=== PATIENT | male | born 1955 | race African-American/Black ===

== ENCOUNTER 2016-11-21 02:01 | Emergency (ER) | payer MEDICAID ==
[~2016-11-21] VITALS: Ht 190.5 cm; Wt 108.0 kg
[~2016-11-21 02:01] MED LIST: ACET-2178 PO; AMLO10TA4 PO; ASPI-1035 PO; ATOR80TA PO; CEPH-569 PO; CIPR-168 PO; CLOP75TA33 PO; DOCU-150 PO; FLUC200T37 PO; INSU3INS6 SUBCUT; ISOS60TA4 PO; NITR0.4T3 SL; PRED5TAB48 PO; PROG1 PO; TAMS0.4C31 PO; WARF5TAB76 PO
[2016-11-21 05:38] LABS: HEMATOCRIT. 38.1 % (42.0-52.0); HEMOGLOBIN. 12.2 g/dL (14.0-18.0); MEAN CORPUSCULAR HEMOGLOBIN 27.8 pg (28.0-32.0); MEAN CORPUSCULAR VOLUME 86.7 fL (80.0-94.0); PLATELET 140 x1000/uL (130-400); RED BLOOD CELL COUNT 4.39 mill/uL (4.7-6.1)
[2016-11-21 05:40] LABS: DIFFERENTIAL COMMENT 1
[2016-11-21 05:57] LABS: ALANINE AMINOTRANSFERASE 15 IU/L (13-61); ALBUMIN 2.8 g/dL (3.4-5.0); ANION GAP 13; CALCIUM 9.1 mg/dL (8.5-10.1); CARBON DIOXIDE 27 mEq/L (21-32); CHLORIDE 104 mEq/L (98-107); INDEX HEMOLYSI 1 (1-3); INDEX ICTERIC 1 (1-4); INDEX LIPEMIC 1 (1-3); LIPASE 174 IU/L (73-393); UREA NITROGEN BLOOD 25 mg/dL (7-21); eGFR 58 mL/min (>60)
[2016-11-21 06:07] LABS: CLARITY URINE CLOUDY (CLEAR); COLOR URINE YELLOW (YELLOW); GLUCOSE URINE 2+ (NEGATIVE); KETONES URINE NEGATIVE (NEGATIVE); LEUKOCYTE ESTERASE URINE 3+ (NEGATIVE); NITRITE URINE POSITIVE (NEGATIVE); OCCULT BLOOD URINE 2+ (NEGATIVE); PROTEIN URINE 2+ (NEGATIVE); SPECIFIC GRAVITY URINE 1.016 (1.005-1.030); UROBILINOGEN URINE 0.2 E.U./dL (0.2-1.0)
[2016-11-21 06:56] LABS: SQUAMOUS EPITHELIAL CELL URINE NONE SEEN /lpf (RARE/1+)
[2016-11-21 06:57] LABS: WBC URINE TNTC /hpf (0-2)
[2016-11-21 06:58] LABS: BACTERIA URINE 3+; RBC URINE 15-25 /hpf (0-2)
[2016-11-21 07:06] LABS: ANISOCYTOSIS 1+; PLATELET ESTIMATE NORMAL
[2016-11-21] MEDS ORDERED: LEVOFLOXACIN 250MG TABLET PO SCH (07:45)
[2016-11-21] MEDS ORDERED: ACETAMINOPHEN 500MG TABLET PO ONE (07:45)
[2016-11-21] MEDS ORDERED: SODIUM CHLORIDE 0.9% 1,000 ML IV ONE (07:45)
[2016-11-21 10:16] VITALS: BP 120/83
== END 2016-11-21 10:57 | disposition home or self-care (01) ==
LOC: ER 02:12
DX: N39.0 Urinary tract infection, site not specified (principal); I10 Essential (primary) hypertension; E11.9 Type 2 diabetes mellitus without complications; I25.2 Old myocardial infarction; Z79.4 Long term (current) use of insulin
CPT/HCPCS: 36415; 80053; 81001; 83690; 85025; 96360; 96361; 99285; J7030; Z7610

== ENCOUNTER → 2017-03-24 | Outpatient (CLI) | payer MEDICAID ==
[~2017-03-24] MED LIST changes: -ASPI-1035 PO; +ASPI-1159 PO; +FLUC200T PO; -FLUC200T37 PO
== END | disposition home or self-care (01) ==
LOC: RAD 09:43
DX: Z01.818 Encounter for other preprocedural examination (principal); I25.10 Atherosclerotic heart disease of native coronary artery without angina pectoris
CPT/HCPCS: 71010

== ENCOUNTER 2017-05-17 00:20 | Inpatient (IN) | payer MEDICAID, OTHER ==
[~2017-05-17] VITALS: Ht 195.6 cm; Wt 96.2 kg
[~2017-05-17 00:20] MED LIST changes: -NITR0.4T3 SL; +NITR0.4T49 SL
[2017-05-17] MEDS ORDERED: ONDANSETRON HCL 4MG/2ML VIAL IV STA (00:52)
[2017-05-17] MEDS ORDERED: MORPHINE SULFATE 4 MG/ML CPJ (NOT FOR IM USE) IV STA (00:52)
[2017-05-17] MEDS ORDERED: ASPIRIN 81MG TABLET PO ONE (01:00)
[2017-05-17] MEDS ORDERED: NITROGLYCERIN OINT 1GM/INCH UDPKT TD ONE (01:00)
[2017-05-17 01:32] LABS: HEMATOCRIT. 26.7 % (42.0-52.0); HEMOGLOBIN. 8.4 g/dL (14.0-18.0); MEAN CORPUSCULAR HEMOGLOBIN 24.8 pg (28.0-32.0); MEAN CORPUSCULAR VOLUME 78.3 fL (80.0-94.0); MEAN PLATELET VOLUME 7.4 fl (7.4-10.4); PLATELET 165 x1000/uL (130-400); RED BLOOD CELL COUNT 3.41 mill/uL (4.7-6.1); RED CELL DISTRIBUTION WIDTH 15.6 % (11.6-14.6)
[2017-05-17 01:46] LABS: D-DIMER 0.4 mg/L FEU (<0.50)
[2017-05-17] MEDS ORDERED: SODIUM CHLORIDE 0.9% 500 ML IV ONE (01:54)
[2017-05-17 02:14] LABS: CARBON DIOXIDE 23 mEq/L (21-32); CHLORIDE 106 mEq/L (98-107); ETHANOL BLOOD < 10 mg/dL; TROPONIN I 0.04 ng/mL (0.00-0.04)
[2017-05-17 03:45] VITALS: BP 130/84
[2017-05-17] MEDS ORDERED: GABA-531 PO (04:45)
[2017-05-17] MEDS ORDERED: ESOM20CA PO (04:45)
[2017-05-17] MEDS ORDERED: PRAV80TA21 PO (04:45)
[2017-05-17] MEDS ORDERED: MAGN400C PO (04:45)
[2017-05-17] MEDS ORDERED: WARF6TAB22 PO (04:45)
[2017-05-17] MEDS ORDERED: MAGN400T27 PO (04:45)
[2017-05-17] MEDS ORDERED: CELL2 PO (04:45)
[2017-05-17] MEDS ORDERED: SOTA80TA PO (04:45)
[2017-05-17] MEDS ORDERED: TACR5CAP2 PO (04:45)
[2017-05-17] MEDS ORDERED: DOCU-150 PO (04:45)
[2017-05-17] MEDS ORDERED: NITR0.4T49 SL (04:45)
[2017-05-17] MEDS ORDERED: INSLIS SUBCUT (04:45)
[2017-05-17] MEDS ORDERED: INSU100I28 SQ (04:45)
[2017-05-17] MEDS ORDERED: METO-396 PO (04:56)
[2017-05-17 05:25] LABS: CLARITY URINE CLOUDY (CLEAR); COLOR URINE YELLOW (YELLOW); GLUCOSE URINE TRACE (NEGATIVE); KETONES URINE NEGATIVE (NEGATIVE); LEUKOCYTE ESTERASE URINE 3+ (NEGATIVE); NITRITE URINE NEGATIVE (NEGATIVE); OCCULT BLOOD URINE 2+ (NEGATIVE); PROTEIN URINE 1+ (NEGATIVE); SPECIFIC GRAVITY URINE 1.016 (1.005-1.030); UROBILINOGEN URINE 0.2 E.U./dL (0.2-1.0)
[2017-05-17 05:47] LABS: *AMPHETAMINES SCREEN URINE NEGATIVE (NEGATIVE); *BARBITURATES SCREEN URINE NEGATIVE (NEGATIVE); *BENZODIAZEPINES SCREEN URINE NEGATIVE (NEGATIVE); *COCAINE SCREEN URINE NEGATIVE (NEGATIVE); CANNABINOID URINE SCREEN NEGATIVE (NEGATIVE); METHADONE URINE SCREEN NEGATIVE (NEGATIVE); OPIATES URINE SCREEN NEGATIVE (NEGATIVE); PHENCYCLIDINE URINE SCREEN NEGATIVE (NEGATIVE)
[2017-05-17 07:20] LABS: PLATELET ESTIMATE NORMAL
[2017-05-17 08:00] VITALS: BP 144/92
[2017-05-17] MEDS ORDERED: TACROLIMUS 1MG CAPSULE PO SCH (11:45)
[2017-05-17] MEDS ORDERED: DEXTROSE 50% WATER 50ML SYRINGE IV PRN (11:45)
[2017-05-17] MEDS ORDERED: DIPHENHYDRAMINE 50MG/ML VIAL IV PRN (11:45)
[2017-05-17] MEDS ORDERED: NITROGLYCERIN 0.4MG TABLET SL SL PRN (11:45)
[2017-05-17] MEDS ORDERED: MYCOPHENOLATE MOFETIL 250MG CAPSULE PO SCH (11:45)
[2017-05-17] MEDS ORDERED: HYDROCODONE/ACETAMINOPHEN 5/325MG TABLET PO PRN (11:45)
[2017-05-17] MEDS ORDERED: CLONIDINE 0.1MG TABLET PO PRN (11:45)
[2017-05-17] MEDS ORDERED: IPRATROPIUM/ALBUTEROL 0.5-3(2.5)MG/3ML NEB INH PRN (11:45)
[2017-05-17] MEDS ORDERED: ONDANSETRON HCL 4MG/2ML VIAL IV PRN (11:45)
[2017-05-17 12:00] VITALS: BP 122/85
[2017-05-17] MEDS: BLOOD SUGAR DIAGNOSTIC STRIP TEST SCH ×3 (12:14→21:27)
[2017-05-17] MEDS ORDERED: CEFTRIAXONE 1 G PREMIX 50 ML IV SCH (14:00)
[2017-05-17] MEDS: INSULIN LISPRO 100 UNITS/ML SUBCUT SCH ×5 (14:01→21:31)
[2017-05-17] MEDS: ASPIRIN 81MG EC TABLET PO SCH (14:04)
[2017-05-17] MEDS: TACROLIMUS 1MG CAPSULE PO SCH ×3 (14:05→21:20)
[2017-05-17] MEDS: CLOPIDOGREL 75MG TABLET PO SCH (14:05)
[2017-05-17] MEDS: PREDNISONE 5MG TABLET PO SCH (14:06)
[2017-05-17] MEDS: ISOSORBIDE MONONITRATE 60MG TABLET SR 24HR PO SCH (14:06)
[2017-05-17] MEDS: MAGNESIUM OXIDE 400MG TABLET PO SCH ×2 (14:06→17:38)
[2017-05-17 14:55] LABS: INR 3.7; PROTHROMBIN TIME 38.1 sec (9.4-11.6)
[2017-05-17 15:22] LABS: CREATINE KINASE MB FRACTION 2.3 ng/mL (0.5-3.6); TROPONIN I 0.04 ng/mL (0.00-0.04)
[2017-05-17] MEDS: MEROPENEM 500 MG in SODIUM CHLORIDE 0.9% 50 ML IV SCH (15:25)
[2017-05-17] MEDS: SODIUM CHLORIDE 0.45% 1,000 ML IV SCH (15:26)
[2017-05-17 16:00] VITALS: BP 128/79
[2017-05-17] MEDS: GABAPENTIN 300MG CAPSULE PO SCH (17:39)
[2017-05-17 20:00] VITALS: BP 129/79
[2017-05-17] MEDS: MYCOPHENOLATE MOFETIL 250MG CAPSULE PO SCH (21:20)
[2017-05-17] MEDS: METOPROLOL TARTRATE 25MG TABLET PO SCH (21:21)
[2017-05-18] VITALS (7 sets, daily range): BP systolic 116–164; BP diastolic 66–97
[2017-05-18] MEDS: ACETAMINOPHEN 325MG TABLET PO PRN ×2 (02:09→16:40)
[2017-05-18] MEDS: SODIUM CHLORIDE 0.45% 1,000 ML IV SCH (04:53)
[2017-05-18 07:11] LABS: INR 2.6; PROTHROMBIN TIME 26.5 sec (9.4-11.6)
[2017-05-18 07:27] LABS: BASOPHILS % 0.4 % (0.0-2.0); EOSINOPHILS % 1.5 % (0.0-5.0); HEMATOCRIT. 30.2 % (42.0-52.0); HEMOGLOBIN. 9.4 g/dL (14.0-18.0); LYMPHOCYTES % 7.4 % (20.0-50.0); MEAN CORPUSCULAR HEMOGLOBIN 24.5 pg (28.0-32.0); MEAN PLATELET VOLUME 7.2 fl (7.4-10.4); MONOCYTES % 11.1 % (2.0-8.0); NEUTROPHILS % 79.6 % (40.0-76.0); PLATELET 181 x1000/uL (130-400); RED BLOOD CELL COUNT 3.83 mill/uL (4.7-6.1); RED CELL DISTRIBUTION WIDTH 15.4 % (11.6-14.6)
[2017-05-18] MEDS: BLOOD SUGAR DIAGNOSTIC STRIP TEST SCH ×4 (07:40→21:28)
[2017-05-18] MEDS: INSULIN LISPRO 100 UNITS/ML SUBCUT SCH ×7 (08:10→21:40)
[2017-05-18 08:23] LABS: CHLORIDE 105 mEq/L (98-107)
[2017-05-18 08:36] LABS: CARBON DIOXIDE 22 mEq/L (21-32); CREATINE KINASE 38 IU/L (39-308); CREATINE KINASE MB FRACTION 1.7 ng/mL (0.5-3.6); HDL CHOLESTEROL 17 mg/dL (40-59); LDL CHOLESTEROL 96 mg/dL (5-100); TROPONIN I 0.03 ng/mL (0.00-0.04)
[2017-05-18] MEDS: MYCOPHENOLATE MOFETIL 250MG CAPSULE PO SCH ×2 (09:07→21:28)
[2017-05-18] MEDS: METOPROLOL TARTRATE 25MG TABLET PO SCH (09:07)
[2017-05-18] MEDS: TACROLIMUS 1MG CAPSULE PO SCH ×2 (09:07→21:28)
[2017-05-18] MEDS: CLOPIDOGREL 75MG TABLET PO SCH (09:07)
[2017-05-18] MEDS: ISOSORBIDE MONONITRATE 60MG TABLET SR 24HR PO SCH (09:08)
[2017-05-18] MEDS: MAGNESIUM OXIDE 400MG TABLET PO SCH ×2 (09:08→16:49)
[2017-05-18] MEDS: ASPIRIN 81MG EC TABLET PO SCH (09:08)
[2017-05-18] MEDS: DOCUSATE SODIUM 100MG CAPSULE PO SCH ×2 (09:10→16:49)
[2017-05-18] MEDS: PREDNISONE 5MG TABLET PO SCH (09:35)
[2017-05-18] MEDS ORDERED: REGADENOSON 0.4 MG/5 ML IV ONE (09:45)
[2017-05-18] MEDS: SOTALOL HCL 80MG TABLET PO SCH ×2 (12:18→21:00)
[2017-05-18] MEDS: RANOLAZINE 500 MG TAB.SR.12H PO SCH ×2 (12:18→21:00)
[2017-05-18] MEDS ORDERED: CEFTRIAXONE 1 G PREMIX 50 ML IV SCH (14:00)
[2017-05-18] MEDS: MEROPENEM 500 MG in SODIUM CHLORIDE 0.9% 50 ML IV SCH (14:05)
[2017-05-18] MEDS: GABAPENTIN 300MG CAPSULE PO SCH (16:48)
[2017-05-18] MEDS: TAMSULOSIN HCL 0.4MG SR CAPSULE PO SCH (16:48)
[2017-05-18] MEDS ORDERED: WARFARIN SODIUM 3MG TABLET PO NR (18:00)
[2017-05-18] MEDS: INSULIN DETEMIR UD 100 UNITS/ML SYR SUBCUT SCH (21:41)
[2017-05-19] VITALS: BP 103/61
[2017-05-19] MEDS: SODIUM CHLORIDE 0.45% 1,000 ML IV SCH ×2 (01:47→12:41)
[2017-05-19 04:00] VITALS: BP 110/74
[2017-05-19] MEDS: BLOOD SUGAR DIAGNOSTIC STRIP TEST SCH ×4 (06:15→21:19)
[2017-05-19 06:53] LABS: INR 1.6; PROTHROMBIN TIME 16.7 sec (9.4-11.6)
[2017-05-19 06:59] LABS: BASOPHILS % 0.8 % (0.0-2.0); EOSINOPHILS % 1.3 % (0.0-5.0); HEMATOCRIT. 29.7 % (42.0-52.0); HEMOGLOBIN. 9.3 g/dL (14.0-18.0); LYMPHOCYTES % 10.1 % (20.0-50.0); MEAN CORPUSCULAR HEMOGLOBIN 24.8 pg (28.0-32.0); MEAN CORPUSCULAR VOLUME 79.2 fL (80.0-94.0); MEAN PLATELET VOLUME 7.7 fl (7.4-10.4); NEUTROPHILS % 75.8 % (40.0-76.0); PLATELET 219 x1000/uL (130-400); RED BLOOD CELL COUNT 3.75 mill/uL (4.7-6.1); RED CELL DISTRIBUTION WIDTH 15.5 % (11.6-14.6)
[2017-05-19 08:00] VITALS: BP 178/92
[2017-05-19] MEDS: INSULIN LISPRO 100 UNITS/ML SUBCUT SCH ×8 (08:07→21:57)
[2017-05-19 08:12] LABS: CARBON DIOXIDE 24 mEq/L (21-32); CHLORIDE 107 mEq/L (98-107)
[2017-05-19] MEDS: PREDNISONE 5MG TABLET PO SCH (08:13)
[2017-05-19] MEDS: SOTALOL HCL 80MG TABLET PO SCH ×2 (08:14→21:13)
[2017-05-19] MEDS: DOCUSATE SODIUM 100MG CAPSULE PO SCH ×2 (08:14→16:43)
[2017-05-19] MEDS: MYCOPHENOLATE MOFETIL 250MG CAPSULE PO SCH ×2 (08:14→21:14)
[2017-05-19] MEDS: MAGNESIUM OXIDE 400MG TABLET PO SCH ×2 (08:14→16:43)
[2017-05-19] MEDS: TAMSULOSIN HCL 0.4MG SR CAPSULE PO SCH (08:15)
[2017-05-19] MEDS: ISOSORBIDE MONONITRATE 60MG TABLET SR 24HR PO SCH (08:15)
[2017-05-19] MEDS: TACROLIMUS 1MG CAPSULE PO SCH ×2 (08:15→21:15)
[2017-05-19] MEDS: ASPIRIN 81MG EC TABLET PO SCH (08:15)
[2017-05-19] MEDS: CLOPIDOGREL 75MG TABLET PO SCH (08:15)
[2017-05-19] MEDS: RANOLAZINE 500 MG TAB.SR.12H PO SCH ×2 (08:22→21:14)
[2017-05-19] MEDS: INSULIN DETEMIR UD 100 UNITS/ML SYR SUBCUT SCH ×2 (11:16→21:26)
[2017-05-19 12:00] VITALS: BP 159/99
[2017-05-19] MEDS ORDERED: LIDOCAINE HCL 1% 20ML VIAL (Pyxis) INJ ONE (14:12)
[2017-05-19] MEDS ORDERED: SODIUM BICARBONATE 4% (2.4MEQ) 5ML VIAL IV ONE (14:12)
[2017-05-19 16:00] VITALS: BP 142/77
[2017-05-19] MEDS: GABAPENTIN 300MG CAPSULE PO SCH (16:43)
[2017-05-19] MEDS: MEROPENEM 500 MG in SODIUM CHLORIDE 0.9% 50 ML IV SCH (17:24)
[2017-05-19] MEDS ORDERED: WARFARIN SODIUM 5MG TABLET PO NR (18:00)
[2017-05-19 20:00] VITALS: BP 141/73
[2017-05-20 02:51] VITALS: BP 178/88
[2017-05-20] MEDS: ACETAMINOPHEN 325MG TABLET PO PRN (02:57)
[2017-05-20 06:13] LABS: BASOPHILS % 0.6 % (0.0-2.0); EOSINOPHILS % 1.4 % (0.0-5.0); HEMATOCRIT. 29.3 % (42.0-52.0); HEMOGLOBIN. 9.3 g/dL (14.0-18.0); LYMPHOCYTES % 14.1 % (20.0-50.0); MEAN CORPUSCULAR VOLUME 78.6 fL (80.0-94.0); MEAN PLATELET VOLUME 7.5 fl (7.4-10.4); MONOCYTES % 12.7 % (2.0-8.0); NEUTROPHILS % 71.2 % (40.0-76.0); PLATELET 242 x1000/uL (130-400); RED BLOOD CELL COUNT 3.73 mill/uL (4.7-6.1); RED CELL DISTRIBUTION WIDTH 15.6 % (11.6-14.6)
[2017-05-20] MEDS: SODIUM CHLORIDE 0.45% 1,000 ML IV SCH (06:56)
[2017-05-20] MEDS: BLOOD SUGAR DIAGNOSTIC STRIP TEST SCH ×2 (06:56→12:52)
[2017-05-20 08:00] VITALS: BP 147/77
[2017-05-20] MEDS: SOTALOL HCL 80MG TABLET PO SCH (08:07)
[2017-05-20] MEDS: DOCUSATE SODIUM 100MG CAPSULE PO SCH (08:08)
[2017-05-20] MEDS: ISOSORBIDE MONONITRATE 60MG TABLET SR 24HR PO SCH (08:09)
[2017-05-20] MEDS: MAGNESIUM OXIDE 400MG TABLET PO SCH (08:09)
[2017-05-20] MEDS: CLOPIDOGREL 75MG TABLET PO SCH (08:09)
[2017-05-20] MEDS: TACROLIMUS 1MG CAPSULE PO SCH (08:10)
[2017-05-20] MEDS: INSULIN LISPRO 100 UNITS/ML SUBCUT SCH ×5 (08:10→12:53)
[2017-05-20] MEDS: MYCOPHENOLATE MOFETIL 250MG CAPSULE PO SCH (08:11)
[2017-05-20] MEDS: ASPIRIN 81MG EC TABLET PO SCH (08:11)
[2017-05-20] MEDS: PREDNISONE 5MG TABLET PO SCH (08:12)
[2017-05-20] MEDS: TAMSULOSIN HCL 0.4MG SR CAPSULE PO SCH (08:21)
[2017-05-20] MEDS: RANOLAZINE 500 MG TAB.SR.12H PO SCH (08:21)
[2017-05-20 08:36] LABS: INR 1.4
[2017-05-20] MEDS: INSULIN DETEMIR UD 100 UNITS/ML SYR SUBCUT SCH (10:34)
[2017-05-20 12:00] VITALS: BP 165/80
[2017-05-20] MEDS: MEROPENEM 500 MG in SODIUM CHLORIDE 0.9% 50 ML IV SCH (13:03)
[2017-05-20 13:39] VITALS: BP 134/68
[2017-05-20] MEDS ORDERED: WARFARIN SODIUM 5MG TABLET PO NR (18:00)
== END 2017-05-20 14:40 | disposition home or self-care (01) | DRG 194 ==
LOC: ER 00:20 → 7WST 02:41 → ENRESERV 03:13
PROVIDERS: ADMIT Internal Medicine; ATTEND Internal Medicine
PROC: 02HV33Z Insertion of Infusion Device into Superior Vena Cava, Percutaneous Approach (ICD-10-PCS; principal; 2017-05-19)
PROC: B548ZZA Ultrasonography of Superior Vena Cava, Guidance (ICD-10-PCS; 2017-05-19)
PROC: B5181ZA Fluoroscopy of Superior Vena Cava using Low Osmolar Contrast, Guidance (ICD-10-PCS; 2017-05-19)
DX: I13.0 Hypertensive heart and chronic kidney disease with heart failure and stage 1 through stage 4 chronic kidney disease, or unspecified chronic kidney disease (principal); E43 Unspecified severe protein-calorie malnutrition; D68.59 Other primary thrombophilia; I31.3 Pericardial effusion (noninflammatory); N17.9 Acute kidney failure, unspecified; D70.9 Neutropenia, unspecified; E86.9 Volume depletion, unspecified; E11.22 Type 2 diabetes mellitus with diabetic chronic kidney disease; N18.3 Chronic kidney disease, stage 3 (moderate); I24.9 Acute ischemic heart disease, unspecified; Q61.3 Polycystic kidney, unspecified; I50.33 Acute on chronic diastolic (congestive) heart failure; E11.40 Type 2 diabetes mellitus with diabetic neuropathy, unspecified; I48.0 Paroxysmal atrial fibrillation; N13.70 Vesicoureteral-reflux, unspecified; N39.0 Urinary tract infection, site not specified; I25.10 Atherosclerotic heart disease of native coronary artery without angina pectoris; D50.9 Iron deficiency anemia, unspecified; E11.319 Type 2 diabetes mellitus with unspecified diabetic retinopathy without macular edema; E78.00 Pure hypercholesterolemia, unspecified; E78.5 Hyperlipidemia, unspecified; I49.1 Atrial premature depolarization; I49.3 Ventricular premature depolarization; K21.9 Gastro-esophageal reflux disease without esophagitis; N12 Tubulo-interstitial nephritis, not specified as acute or chronic; N40.0 Benign prostatic hyperplasia without lower urinary tract symptoms; Q44.6 Cystic disease of liver; Z95.5 Presence of coronary angioplasty implant and graft; I25.2 Old myocardial infarction; Z79.01 Long term (current) use of anticoagulants; Z79.4 Long term (current) use of insulin; Z79.82 Long term (current) use of aspirin; Z79.899 Other long term (current) drug therapy; Z82.71 Family history of polycystic kidney; Z87.440 Personal history of urinary (tract) infections; Z89.411 Acquired absence of right great toe; Z95.1 Presence of aortocoronary bypass graft; Z94.0 Kidney transplant status
CPT/HCPCS: 36415; 36569; 71010; 76937; 77001; 80048; 80053; 80061; 80305; 81001; 82270; 82550; 82553; 82728; 82962; 83036; 83540; 83550; 83690; 83735; 83880; 84100; 84484; 85025; 85379; 85610; 87015; 87040; 87045; 87077; 87086; 87186; 87427; 87449; 87493; 93005; 93306; 96361; 96374; 96375; 99285; C1725; G0482; J0696; J1815; J2185; J3490; J7030; J7040; J7050; J7507; J7512; J7517

== ENCOUNTER → 2017-12-14 | Outpatient (CLI) | payer MEDICAID ==
[~2017-12-14] MED LIST changes: -ACET-2178 PO; -AMLO10TA4 PO; -ASPI-1159 PO; -ATOR80TA PO; +CELL2 PO; -CEPH-569 PO; -CIPR-168 PO; -CLOP75TA33 PO; +ESOM20CA PO; -FLUC200T PO; +GABA-531 PO; +INSLIS SUBCUT; +INSU100I28 SQ; -INSU3INS6 SUBCUT; +MAGN400T27 PO; +METO-396 PO; +PRAV80TA21 PO; -PROG1 PO; +SOTA80TA PO; +TACR5CAP2 PO; -WARF5TAB76 PO
== END | disposition home or self-care (01) ==
LOC: RAD 15:06
DX: Z01.810 Encounter for preprocedural cardiovascular examination (principal); I13.0 Hypertensive heart and chronic kidney disease with heart failure and stage 1 through stage 4 chronic kidney disease, or unspecified chronic kidney disease; E11.22 Type 2 diabetes mellitus with diabetic chronic kidney disease; N18.3 Chronic kidney disease, stage 3 (moderate); I50.9 Heart failure, unspecified; N11.9 Chronic tubulo-interstitial nephritis, unspecified; Z79.4 Long term (current) use of insulin; Z94.0 Kidney transplant status
CPT/HCPCS: 71045

== ENCOUNTER 2018-09-12 13:30 | Inpatient (IN) | payer MEDICAID, OTHER ==
[~2018-09-12] VITALS: Ht 195.6 cm; Wt 95.3 kg
[2018-09-12] MEDS ORDERED: ASPIRIN 81MG TABLET PO ONE (14:00)
[2018-09-12] MEDS ORDERED: DILTIAZEM HCL 5MG/ML 5ML VIAL IV ONE (14:00)
[2018-09-12] MEDS ORDERED: DILTIAZEM HCL 125 MG in DEXT 5% WATER 100 ML IV ONE (14:00)
[2018-09-12 15:23] LABS: CHLORIDE 108 mEq/L (98-107); HEMATOCRIT. 41.4 % (42.0-52.0); HEMOGLOBIN. 12.9 g/dL (14.0-18.0); MEAN CORPUSCULAR HEMOGLOBIN 27.5 pg (28.0-32.0); MEAN CORPUSCULAR VOLUME 88.4 fL (80.0-94.0); MEAN PLATELET VOLUME 8.1 fl (7.4-10.4); PLATELET 122 x1000/uL (130-400); RED BLOOD CELL COUNT 4.68 mill/uL (4.7-6.1); RED CELL DISTRIBUTION WIDTH 15.5 % (11.6-14.6)
[2018-09-12 15:56] LABS: PLATELET ESTIMATE NORMAL
[2018-09-12] MEDS ORDERED: ACETAMINOPHEN 325MG TABLET PO PRN (17:45)
[2018-09-12] MEDS ORDERED: HYDROCODONE/ACETAMINOPHEN 5/325MG TABLET PO PRN (17:45)
[2018-09-12] MEDS ORDERED: GUAIFENESIN 200MG/10ML SUGAR FREE UDC PO PRN (17:45)
[2018-09-12] MEDS ORDERED: ONDANSETRON HCL 4MG/2ML INJ IV PRN (17:45)
[2018-09-12] MEDS ORDERED: DOCUSATE SODIUM 100MG CAPSULE PO PRN (17:45)
[2018-09-12] MEDS ORDERED: CLONIDINE 0.1MG TABLET PO PRN (17:45)
[2018-09-12 21:00] VITALS: BP 132/81
[2018-09-12] MEDS ORDERED: HYDROMORPHONE HCL/PF 2MG/ML CPJ IV PRN (22:15)
[2018-09-12] MEDS: SOTALOL HCL 80MG TABLET PO SCH (23:27)
[2018-09-13] VITALS: BP 133/71
[2018-09-13] MEDS ORDERED: ATORVASTATIN CALCIUM 40MG TABLET PO SCH
[2018-09-13] MEDS ORDERED: NITR-87 PO (00:04)
[2018-09-13] MEDS ORDERED: CLOP75TA33 PO (00:04)
[2018-09-13] MEDS ORDERED: LOSA50TA20 PO (00:04)
[2018-09-13] MEDS ORDERED: APIX2.5T PO (00:04)
[2018-09-13] MEDS ORDERED: OXYB5TAB11 PO (00:04)
[2018-09-13] MEDS ORDERED: ATOR80TA PO (00:04)
[2018-09-13] MEDS ORDERED: TACR1CAP PO (00:04)
[2018-09-13] MEDS: TACROLIMUS 1MG CAPSULE PO SCH ×3 (00:23→17:46)
[2018-09-13] MEDS: APIXABAN 2.5 MG TABLET PO SCH ×3 (00:23→17:46)
[2018-09-13] MEDS: MYCOPHENOLATE MOFETIL 250MG CAPSULE PO SCH ×3 (00:24→21:05)
[2018-09-13] MEDS: ATORVASTATIN CALCIUM 40MG TABLET PO SCH ×2 (00:24→21:04)
[2018-09-13] MEDS: METOPROLOL TARTRATE 25MG TABLET PO SCH ×2 (00:25→09:01)
[2018-09-13] MEDS: NITROFURANTOIN 100MG M/M CAPSULE PO SCH ×2 (00:25→21:04)
[2018-09-13] MEDS: GABAPENTIN 300MG CAPSULE PO SCH ×2 (00:25→09:01)
[2018-09-13] MEDS: SODIUM POLYSTYRENE SULFONATE 15 G/60 ML BOT PO NR ×2 (00:27→00:32)
[2018-09-13 04:00] VITALS: BP 140/80
[2018-09-13 06:09] LABS: BASOPHILS % 0.5 % (0.0-2.0); EOSINOPHILS % 0.7 % (0.0-5.0); HEMOGLOBIN. 11.8 g/dL (14.0-18.0); LYMPHOCYTES % 10.1 % (20.0-50.0); MEAN CORPUSCULAR HEMOGLOBIN 27.7 pg (28.0-32.0); MEAN CORPUSCULAR VOLUME 86.8 fL (80.0-94.0); MEAN PLATELET VOLUME 8.3 fl (7.4-10.4); NEUTROPHILS % 77.7 % (40.0-76.0); PLATELET 115 x1000/uL (130-400); RED BLOOD CELL COUNT 4.27 mill/uL (4.7-6.1); RED CELL DISTRIBUTION WIDTH 15.5 % (11.6-14.6)
[2018-09-13 06:28] LABS: CHLORIDE 108 mEq/L (98-107)
[2018-09-13 06:43] LABS: LDL CHOLESTEROL 78 mg/dL (5-100)
[2018-09-13 06:44] LABS: CREATINE KINASE 73 IU/L (39-308); HDL CHOLESTEROL 36 mg/dL (40-59)
[2018-09-13] MEDS ORDERED: DEXTROSE 50% WATER 50ML SYRINGE IV PRN (07:15)
[2018-09-13] MEDS: BLOOD SUGAR DIAGNOSTIC STRIP TEST SCH ×4 (07:24→21:17)
[2018-09-13 08:00] VITALS: BP 151/91
[2018-09-13] MEDS: INSULIN LISPRO 100 UNITS/ML SUBCUT SCH ×7 (08:10→21:35)
[2018-09-13] MEDS: SOTALOL HCL 80MG TABLET PO SCH ×2 (09:00→21:07)
[2018-09-13] MEDS ORDERED: ENOXAPARIN 40MG/0.4ML SYR SUBCUT SCH (09:00)
[2018-09-13] MEDS: ASPIRIN 81MG EC TABLET PO SCH (09:00)
[2018-09-13] MEDS: PREDNISONE 5MG TABLET PO SCH (09:00)
[2018-09-13] MEDS ORDERED: GABAPENTIN 300MG CAPSULE PO SCH (09:00)
[2018-09-13] MEDS: CLOPIDOGREL 75MG TABLET PO SCH (09:01)
[2018-09-13] MEDS: TAMSULOSIN HCL 0.4MG SR CAPSULE PO SCH (09:01)
[2018-09-13] MEDS: INSULIN GLARGINE UD 100 UNITS/ML SYR SUBCUT SCH (10:30)
[2018-09-13 12:00] VITALS: BP 124/82
[2018-09-13 16:00] VITALS: BP 141/71
[2018-09-13 20:00] VITALS: BP 148/79
[2018-09-13 21:05] LABS: CLARITY URINE CLEAR (CLEAR); COLOR URINE YELLOW (YELLOW); KETONES URINE NEGATIVE (NEGATIVE); LEUKOCYTE ESTERASE URINE 1+ (NEGATIVE); NITRITE URINE NEGATIVE (NEGATIVE); OCCULT BLOOD URINE NEGATIVE (NEGATIVE); PH URINE 6.5 (4.5-8.0); PROTEIN URINE 1+ (NEGATIVE); SPECIFIC GRAVITY URINE 1.027 (1.005-1.030)
[2018-09-13] MEDS: METOPROLOL TARTRATE 50MG TABLET PO SCH (21:06)
[2018-09-13] MEDS: RANOLAZINE 500 MG TAB.SR.12H PO SCH (21:06)
[2018-09-14] VITALS: BP 165/70
[2018-09-14 04:30] VITALS: BP 168/92
[2018-09-14] MEDS: BLOOD SUGAR DIAGNOSTIC STRIP TEST SCH ×2 (05:52→13:21)
[2018-09-14 07:29] LABS: BASOPHILS % 0.4 % (0.0-2.0); HEMATOCRIT. 40.6 % (42.0-52.0); HEMOGLOBIN. 12.9 g/dL (14.0-18.0); LYMPHOCYTES % 11.5 % (20.0-50.0); MEAN CORPUSCULAR HEMOGLOBIN 27.4 pg (28.0-32.0); MEAN CORPUSCULAR VOLUME 86.4 fL (80.0-94.0); MEAN PLATELET VOLUME 8.3 fl (7.4-10.4); MONOCYTES % 12.9 % (2.0-8.0); NEUTROPHILS % 74.2 % (40.0-76.0); PLATELET 122 x1000/uL (130-400); RED CELL DISTRIBUTION WIDTH 15.4 % (11.6-14.6)
[2018-09-14 08:00] VITALS: BP 125/73
[2018-09-14] MEDS: INSULIN LISPRO 100 UNITS/ML SUBCUT SCH ×4 (08:10→13:34)
[2018-09-14] MEDS: TAMSULOSIN HCL 0.4MG SR CAPSULE PO SCH (08:54)
[2018-09-14] MEDS: APIXABAN 2.5 MG TABLET PO SCH (08:54)
[2018-09-14] MEDS: GABAPENTIN 300MG CAPSULE PO SCH (08:54)
[2018-09-14] MEDS: CLOPIDOGREL 75MG TABLET PO SCH (08:55)
[2018-09-14] MEDS: ASPIRIN 81MG EC TABLET PO SCH (08:55)
[2018-09-14] MEDS: METOPROLOL TARTRATE 50MG TABLET PO SCH (08:55)
[2018-09-14] MEDS: MYCOPHENOLATE MOFETIL 250MG CAPSULE PO SCH (08:55)
[2018-09-14] MEDS: RANOLAZINE 500 MG TAB.SR.12H PO SCH (08:55)
[2018-09-14] MEDS: TACROLIMUS 1MG CAPSULE PO SCH (08:55)
[2018-09-14] MEDS: NITROFURANTOIN 100MG M/M CAPSULE PO SCH (08:55)
[2018-09-14] MEDS: PREDNISONE 5MG TABLET PO SCH (08:58)
[2018-09-14] MEDS ORDERED: MAGNESIUM OXIDE 400MG TABLET PO SCH (10:00)
[2018-09-14] MEDS: SOTALOL HCL 80MG TABLET PO SCH (11:58)
[2018-09-14] MEDS: INSULIN GLARGINE UD 100 UNITS/ML SYR SUBCUT SCH (11:59)
[2018-09-14 12:00] VITALS: BP 141/73
[2018-09-14 14:24] VITALS: BP 141/73
[2018-09-15] MEDS ORDERED: INSULIN GLARGINE UD 100 UNITS/ML SYR SUBCUT SCH (10:00)
== END 2018-09-14 16:29 | disposition home or self-care (01) | DRG 194 ==
LOC: ER 13:30 → 7WST 16:36 → EDBEDREQ 16:37 → EDBEDREQTM 16:37 → SUPCPDRO 17:29 → ENRESERV 19:23 → 7WST 21:52
PROVIDERS: ADMIT Hospitalist; ATTEND Hospitalist
DX: I13.0 Hypertensive heart and chronic kidney disease with heart failure and stage 1 through stage 4 chronic kidney disease, or unspecified chronic kidney disease (principal); E11.22 Type 2 diabetes mellitus with diabetic chronic kidney disease; E11.42 Type 2 diabetes mellitus with diabetic polyneuropathy; E11.319 Type 2 diabetes mellitus with unspecified diabetic retinopathy without macular edema; E83.42 Hypomagnesemia; I31.3 Pericardial effusion (noninflammatory); I25.10 Atherosclerotic heart disease of native coronary artery without angina pectoris; Q44.6 Cystic disease of liver; E87.5 Hyperkalemia; N18.3 Chronic kidney disease, stage 3 (moderate); D64.9 Anemia, unspecified; E78.00 Pure hypercholesterolemia, unspecified; E78.5 Hyperlipidemia, unspecified; N28.1 Cyst of kidney, acquired; N39.0 Urinary tract infection, site not specified; I24.9 Acute ischemic heart disease, unspecified; I48.0 Paroxysmal atrial fibrillation; I50.32 Chronic diastolic (congestive) heart failure; K21.9 Gastro-esophageal reflux disease without esophagitis; N13.729 Vesicoureteral-reflux with reflux nephropathy without hydroureter, unspecified; N40.0 Benign prostatic hyperplasia without lower urinary tract symptoms; Z82.71 Family history of polycystic kidney; Z87.01 Personal history of pneumonia (recurrent); I25.2 Old myocardial infarction; Z87.440 Personal history of urinary (tract) infections; Z89.411 Acquired absence of right great toe; Z95.5 Presence of coronary angioplasty implant and graft; Z94.0 Kidney transplant status; Z84.1 Family history of disorders of kidney and ureter; Z79.01 Long term (current) use of anticoagulants; Z88.8 Allergy status to other drugs, medicaments and biological substances; Z79.4 Long term (current) use of insulin; Z79.899 Other long term (current) drug therapy
CPT/HCPCS: 36415; 71045; 80048; 80061; 80197; 82550; 82962; 83735; 83880; 84484; 85379; 93005; 93306; 93970; 99285; J1815; J3490; J7060; J7507; J7512; J7517

== ENCOUNTER 2019-01-16 16:00 | Inpatient (IN) | payer MEDICAID, OTHER ==
[~2019-01-16] VITALS: Ht 188 cm; Wt 81.6 kg
[~2019-01-16 16:00] MED LIST changes: +APIX2.5T PO; +ATOR80TA PO; +CLOP75TA33 PO; +LOSA50TA41 PO; +NITR-87 PO; +OXYB5TAB11 PO; -PRAV80TA21 PO
[2019-01-16 17:02] LABS: CHLORIDE 110 mEq/L (98-107)
[2019-01-16 17:19] LABS: BASOPHILS % 0.6 % (0.0-2.0); EOSINOPHILS % 0.6 % (0.0-5.0); HEMATOCRIT. 40.2 % (42.0-52.0); HEMOGLOBIN. 12.8 g/dL (14.0-18.0); LYMPHOCYTES % 12.9 % (20.0-50.0); MEAN CORPUSCULAR HEMOGLOBIN 27.7 pg (28.0-32.0); MEAN PLATELET VOLUME 8.1 fl (7.4-10.4); MONOCYTES % 9.3 % (2.0-8.0); NEUTROPHILS % 76.6 % (40.0-76.0); PLATELET 112 x1000/uL (130-400); RED BLOOD CELL COUNT 4.62 mill/uL (4.7-6.1); RED CELL DISTRIBUTION WIDTH 14.8 % (11.6-14.6)
[2019-01-16] MEDS ORDERED: FUROSEMIDE 40MG/4ML VIAL IVP ONE (18:00)
[2019-01-16 21:00] VITALS: BP 126/81
[2019-01-16] MEDS ORDERED: CLONIDINE 0.1MG TABLET PO PRN (22:15)
[2019-01-16] MEDS ORDERED: ONDANSETRON HCL 4MG/2ML INJ IV PRN (22:15)
[2019-01-16] MEDS ORDERED: DOCUSATE SODIUM 100MG CAPSULE PO PRN (22:15)
[2019-01-16] MEDS ORDERED: MAGNESIUM/ALUMINUM HYDROXIDE/SIMETHICONE 30ML UDC PO PRN (22:15)
[2019-01-16] MEDS ORDERED: ACETAMINOPHEN 325MG TABLET PO PRN (22:15)
[2019-01-16] MEDS ORDERED: HYDROCODONE/ACETAMINOPHEN 5/325MG TABLET PO PRN (22:15)
[2019-01-17] VITALS: BP 140/70
[2019-01-17 04:00] VITALS: BP 128/66
[2019-01-17 06:12] LABS: BASOPHILS % 0.8 % (0.0-2.0); EOSINOPHILS % 1.5 % (0.0-5.0); HEMATOCRIT. 40.4 % (42.0-52.0); HEMOGLOBIN. 13.2 g/dL (14.0-18.0); LYMPHOCYTES % 19.9 % (20.0-50.0); MEAN CORPUSCULAR HEMOGLOBIN 28.1 pg (28.0-32.0); MEAN CORPUSCULAR VOLUME 86.2 fL (80.0-94.0); MEAN PLATELET VOLUME 8.1 fl (7.4-10.4); MONOCYTES % 12.1 % (2.0-8.0); NEUTROPHILS % 65.7 % (40.0-76.0); PLATELET 112 x1000/uL (130-400); RED BLOOD CELL COUNT 4.69 mill/uL (4.7-6.1); RED CELL DISTRIBUTION WIDTH 14.8 % (11.6-14.6)
[2019-01-17 06:23] LABS: CHLORIDE 110 mEq/L (98-107)
[2019-01-17 06:41] LABS: CREATINE KINASE 164 IU/L (39-308)
[2019-01-17 06:43] LABS: CREATINE KINASE MB FRACTION 18.6 ng/mL (0.5-3.6)
[2019-01-17] MEDS ORDERED: DEXTROSE 50% WATER 50ML SYRINGE IV PRN (06:45)
[2019-01-17] MEDS: INSULIN LISPRO 100 UNITS/ML SUBCUT SCH ×6 (06:54→20:54)
[2019-01-17] MEDS: BLOOD SUGAR DIAGNOSTIC STRIP TEST SCH ×4 (06:55→20:55)
[2019-01-17 08:00] VITALS: BP 109/64
[2019-01-17] MEDS ORDERED: APIXABAN 5 MG TABLET PO SCH (09:00)
[2019-01-17] MEDS ORDERED: TACROLIMUS 1MG CAPSULE PO SCH (10:30)
[2019-01-17] MEDS: LOSARTAN POTASSIUM 50 MG TABLET PO SCH (11:04)
[2019-01-17] MEDS: TAMSULOSIN HCL 0.4MG SR CAPSULE PO SCH (11:04)
[2019-01-17] MEDS: CLOPIDOGREL 75MG TABLET PO SCH (11:05)
[2019-01-17] MEDS: ISOSORBIDE MONONITRATE 60MG TABLET SR 24HR PO SCH (11:05)
[2019-01-17] MEDS: TACROLIMUS 1MG CAPSULE PO SCH ×2 (11:08→20:36)
[2019-01-17] MEDS: MYCOPHENOLATE MOFETIL 250MG CAPSULE PO SCH ×2 (11:28→17:49)
[2019-01-17 12:00] VITALS: BP 133/77
[2019-01-17] MEDS: NITROGLYCERIN OINT 1GM/INCH UDPKT TD SCH ×3 (12:00→18:00)
[2019-01-17] MEDS: RANOLAZINE 500 MG TAB.SR.12H PO SCH ×2 (13:00→20:39)
[2019-01-17] MEDS: PREDNISONE 5MG TABLET PO SCH (13:17)
[2019-01-17 14:05] LABS: PHOSPHORUS 2.7 mg/dL (2.5-4.9)
[2019-01-17 16:00] VITALS: BP 108/56
[2019-01-17 17:06] LABS: CREATINE KINASE MB FRACTION 15.4 ng/mL (0.5-3.6)
[2019-01-17] MEDS: APIXABAN 5 MG TABLET PO SCH (17:49)
[2019-01-17] MEDS: GABAPENTIN 300MG CAPSULE PO SCH (17:50)
[2019-01-17] MEDS: MAGNESIUM GLUCONATE 500MG TABLET PO SCH (17:51)
[2019-01-17] MEDS: MORPHINE SULFATE 2 MG/ML CPJ (NOT FOR IM USE) IV PRN (18:41)
[2019-01-17 19:26] LABS: *AMPHETAMINES SCREEN URINE NEGATIVE (NEGATIVE); *BARBITURATES SCREEN URINE NEGATIVE (NEGATIVE); *BENZODIAZEPINES SCREEN URINE NEGATIVE (NEGATIVE); *COCAINE SCREEN URINE NEGATIVE (NEGATIVE)
[2019-01-17 19:27] LABS: CANNABINOID URINE SCREEN NEGATIVE (NEGATIVE); METHADONE URINE SCREEN NEGATIVE (NEGATIVE); OPIATES URINE SCREEN PRESUMTIVE POSITIVE (NEGATIVE); PHENCYCLIDINE URINE SCREEN NEGATIVE (NEGATIVE)
[2019-01-17 20:00] VITALS: BP 151/78
[2019-01-17] MEDS: OXYBUTYNIN CHLORIDE 5MG TABLET PO SCH (20:36)
[2019-01-17] MEDS: SOTALOL HCL 80MG TABLET PO SCH (20:38)
[2019-01-17] MEDS: ATORVASTATIN CALCIUM 40MG TABLET PO SCH (20:38)
[2019-01-17] MEDS ORDERED: METOPROLOL TARTRATE 25MG TABLET PO SCH (21:00)
[2019-01-18] VITALS: BP 111/53
[2019-01-18 04:00] VITALS: BP 109/61
[2019-01-18] MEDS: NITROGLYCERIN OINT 1GM/INCH UDPKT TD SCH ×2 (06:00)
[2019-01-18] MEDS: BLOOD SUGAR DIAGNOSTIC STRIP TEST SCH ×4 (06:26→21:00)
[2019-01-18] MEDS: INSULIN LISPRO 100 UNITS/ML SUBCUT SCH ×7 (06:26→21:00)
[2019-01-18 06:58] LABS: T4 FREE 1.19 ng/dL (0.76-1.46)
[2019-01-18 08:00] VITALS: BP 134/75
[2019-01-18] MEDS: SOTALOL HCL 80MG TABLET PO SCH ×2 (09:40→20:16)
[2019-01-18] MEDS: MYCOPHENOLATE MOFETIL 250MG CAPSULE PO SCH ×2 (09:40→18:15)
[2019-01-18] MEDS: MAGNESIUM GLUCONATE 500MG TABLET PO SCH ×2 (09:41→18:15)
[2019-01-18] MEDS: CLOPIDOGREL 75MG TABLET PO SCH (09:41)
[2019-01-18] MEDS: TAMSULOSIN HCL 0.4MG SR CAPSULE PO SCH (09:42)
[2019-01-18] MEDS: TACROLIMUS 1MG CAPSULE PO SCH ×2 (09:42→20:15)
[2019-01-18] MEDS: LOSARTAN POTASSIUM 50 MG TABLET PO SCH (09:42)
[2019-01-18] MEDS: PREDNISONE 5MG TABLET PO SCH (09:42)
[2019-01-18] MEDS: APIXABAN 5 MG TABLET PO SCH (09:43)
[2019-01-18] MEDS: ISOSORBIDE MONONITRATE 60MG TABLET SR 24HR PO SCH (09:43)
[2019-01-18] MEDS: INSULIN GLARGINE UD 100 UNITS/ML SYR SUBCUT SCH (09:47)
[2019-01-18] MEDS: RANOLAZINE 500 MG TAB.SR.12H PO SCH ×2 (09:53→20:17)
[2019-01-18] MEDS: NITROFURANTOIN 100MG M/M CAPSULE PO SCH ×2 (09:53→18:14)
[2019-01-18] MEDS: OXYBUTYNIN CHLORIDE 5MG TABLET PO SCH ×2 (09:57→20:15)
[2019-01-18 12:09] VITALS: BP 133/65
[2019-01-18] MEDS ORDERED: MAGNESIUM 1 G PREMIX 100 ML IV SCH (16:00)
[2019-01-18] MEDS: APIXABAN 2.5 MG TABLET PO SCH (18:14)
[2019-01-18] MEDS: GABAPENTIN 300MG CAPSULE PO SCH (18:16)
[2019-01-18 20:00] VITALS: BP 130/70
[2019-01-18] MEDS: ATORVASTATIN CALCIUM 40MG TABLET PO SCH (20:15)
[2019-01-19] VITALS: BP 134/71
[2019-01-19 04:00] VITALS: BP 116/73
[2019-01-19] MEDS: MORPHINE SULFATE 2 MG/ML CPJ (NOT FOR IM USE) IV PRN (04:47)
[2019-01-19] MEDS: INSULIN LISPRO 100 UNITS/ML SUBCUT SCH ×4 (07:40→12:57)
[2019-01-19 07:48] LABS: HEMATOCRIT. 41.3 % (42.0-52.0); HEMOGLOBIN. 13.5 g/dL (14.0-18.0); MEAN CORPUSCULAR HEMOGLOBIN 28.2 pg (28.0-32.0); MEAN CORPUSCULAR VOLUME 86.4 fL (80.0-94.0); MEAN PLATELET VOLUME 8.1 fl (7.4-10.4); PLATELET 94 x1000/uL (130-400); RED BLOOD CELL COUNT 4.77 mill/uL (4.7-6.1); RED CELL DISTRIBUTION WIDTH 14.7 % (11.6-14.6)
[2019-01-19] MEDS: BLOOD SUGAR DIAGNOSTIC STRIP TEST SCH ×2 (07:53→12:58)
[2019-01-19 08:00] VITALS: BP 99/57
[2019-01-19 08:23] LABS: CHLORIDE 106 mEq/L (98-107)
[2019-01-19] MEDS: TACROLIMUS 1MG CAPSULE PO SCH (08:48)
[2019-01-19] MEDS: OXYBUTYNIN CHLORIDE 5MG TABLET PO SCH (08:48)
[2019-01-19] MEDS: RANOLAZINE 500 MG TAB.SR.12H PO SCH (08:48)
[2019-01-19] MEDS: MAGNESIUM GLUCONATE 500MG TABLET PO SCH (08:49)
[2019-01-19] MEDS: PREDNISONE 5MG TABLET PO SCH (08:49)
[2019-01-19] MEDS: APIXABAN 2.5 MG TABLET PO SCH (08:49)
[2019-01-19] MEDS: MYCOPHENOLATE MOFETIL 250MG CAPSULE PO SCH (08:49)
[2019-01-19] MEDS: NITROFURANTOIN 100MG M/M CAPSULE PO SCH (08:51)
[2019-01-19] MEDS: SOTALOL HCL 80MG TABLET PO SCH (08:51)
[2019-01-19] MEDS: CLOPIDOGREL 75MG TABLET PO SCH (08:51)
[2019-01-19] MEDS: TAMSULOSIN HCL 0.4MG SR CAPSULE PO SCH (08:52)
[2019-01-19] MEDS: ISOSORBIDE MONONITRATE 60MG TABLET SR 24HR PO SCH (08:52)
[2019-01-19] MEDS: LOSARTAN POTASSIUM 50 MG TABLET PO SCH (08:53)
[2019-01-19 10:00] VITALS: BP 119/67
[2019-01-19 11:06] VITALS: BP 115/71
[2019-01-19] MEDS: INSULIN GLARGINE UD 100 UNITS/ML SYR SUBCUT SCH (11:49)
[2019-01-19 12:00] VITALS: BP 124/64
[2019-01-19 12:51] LABS: PLATELET ESTIMATE DECREASED
== END 2019-01-19 17:00 | disposition home or self-care (01) | DRG 198 ==
LOC: ER 16:00 → 8WST 17:50 → EDBEDREQTM 18:01 → EDBEDREQ 18:01 → ENRESERV 19:54
PROVIDERS: ADMIT Hospitalist; ATTEND Hospitalist
DX: I25.119 Atherosclerotic heart disease of native coronary artery with unspecified angina pectoris (principal); D69.6 Thrombocytopenia, unspecified; D68.59 Other primary thrombophilia; E11.22 Type 2 diabetes mellitus with diabetic chronic kidney disease; E11.319 Type 2 diabetes mellitus with unspecified diabetic retinopathy without macular edema; N18.3 Chronic kidney disease, stage 3 (moderate); I48.92 Unspecified atrial flutter; I50.32 Chronic diastolic (congestive) heart failure; D64.9 Anemia, unspecified; E78.5 Hyperlipidemia, unspecified; E83.42 Hypomagnesemia; H40.9 Unspecified glaucoma; I13.0 Hypertensive heart and chronic kidney disease with heart failure and stage 1 through stage 4 chronic kidney disease, or unspecified chronic kidney disease; I24.9 Acute ischemic heart disease, unspecified; K21.9 Gastro-esophageal reflux disease without esophagitis; N40.0 Benign prostatic hyperplasia without lower urinary tract symptoms; E11.40 Type 2 diabetes mellitus with diabetic neuropathy, unspecified; I48.0 Paroxysmal atrial fibrillation; Q44.6 Cystic disease of liver; Q61.3 Polycystic kidney, unspecified; Z94.0 Kidney transplant status; I25.2 Old myocardial infarction; Z79.4 Long term (current) use of insulin; Z82.71 Family history of polycystic kidney; Z87.01 Personal history of pneumonia (recurrent); Z89.411 Acquired absence of right great toe; Z95.5 Presence of coronary angioplasty implant and graft; Z88.8 Allergy status to other drugs, medicaments and biological substances; Z79.01 Long term (current) use of anticoagulants; Z79.899 Other long term (current) drug therapy
CPT/HCPCS: 36415; 71045; 74176; 80048; 80061; 80305; 82550; 82553; 82962; 83735; 83880; 84100; 84153; 84439; 84443; 84481; 84484; 85379; 93005; 93306; 96374; 99291; J1815; J1940; J2270; J3475; J7507; J7512; J7517; G0103

== ENCOUNTER 2019-08-27 13:06 | Emergency (ER) | payer MEDICAID ==
[~2019-08-27] VITALS: Ht 195.6 cm; Wt 92.0 kg
[2019-08-27 13:18] VITALS: BP 139/81
== END 2019-08-27 14:29 | disposition left against medical advice (07) ==
LOC: ER 13:06
DX: Z53.21 Procedure and treatment not carried out due to patient leaving prior to being seen by health care provider (principal)
CPT/HCPCS: 93005

== ENCOUNTER 2022-08-03 01:10 | Inpatient (IN) | payer MEDICAID ==
[~2022-08-03] VITALS: Ht 195.6 cm; Wt 73.0 kg
[~2022-08-03 01:10] MED LIST changes: -GABA-531 PO; +GABA-532 PO; -ISOS60TA4 PO; +ISOS60TA76 PO; -MAGN400T27 PO; +MAGN400T55 PO; -OXYB5TAB11 PO; +OXYB5TAB17 PO
[2022-08-03 04:41] LABS: HEMATOCRIT. 34.4 % (42.0-52.0); HEMOGLOBIN. 11.3 g/dL (14.0-18.0); MEAN CORPUSCULAR HEMOGLOBIN 28.5 pg (28.0-32.0); MEAN CORPUSCULAR VOLUME 86.7 fL (80.0-94.0); MEAN PLATELET VOLUME 7.6 fl (7.4-10.4); PLATELET 78 x1000/uL (130-400); RED BLOOD CELL COUNT 3.96 mill/uL (4.7-6.1); RED CELL DISTRIBUTION WIDTH 14.4 % (11.6-14.6)
[2022-08-03 04:44] LABS: CHLORIDE 104 mEq/L (98-107)
[2022-08-03 04:48] LABS: INR 1.2; PROTHROMBIN TIME 12.6 sec (9.6-11.0)
[2022-08-03 05:09] LABS: ETHANOL BLOOD < 10 mg/dL
[2022-08-03] MEDS ORDERED: ONDANSETRON HCL 4MG/2ML INJ IV ONE (05:30)
[2022-08-03] MEDS ORDERED: SODIUM CHLORIDE 0.9% 1,000 ML IV ONE (05:30)
[2022-08-03 08:16] LABS: PLATELET ESTIMATE DECREASED
[2022-08-03 10:01] LABS: CLARITY URINE TURBID (CLEAR); COLOR URINE YELLOW (YELLOW); KETONES URINE NEGATIVE (NEGATIVE); LEUKOCYTE ESTERASE URINE 3+ (NEGATIVE); NITRITE URINE NEGATIVE (NEGATIVE); OCCULT BLOOD URINE 2+ (NEGATIVE); PROTEIN URINE 2+ (NEGATIVE); SPECIFIC GRAVITY URINE 1.012 (1.005-1.030); UROBILINOGEN URINE 0.2 E.U./dL (0.2-1.0)
[2022-08-03 10:51] LABS: *AMPHETAMINES SCREEN URINE NEGATIVE (NEGATIVE); *BARBITURATES SCREEN URINE NEGATIVE (NEGATIVE); *BENZODIAZEPINES SCREEN URINE NEGATIVE (NEGATIVE); *COCAINE SCREEN URINE NEGATIVE (NEGATIVE); CANNABINOID URINE SCREEN NEGATIVE (NEGATIVE); METHADONE URINE SCREEN NEGATIVE (NEGATIVE); OPIATES URINE SCREEN NEGATIVE (NEGATIVE); PHENCYCLIDINE URINE SCREEN NEGATIVE (NEGATIVE)
[2022-08-03 14:20] VITALS: BP 131/68
[2022-08-03] MEDS ORDERED: MAGNESIUM/ALUMINUM HYDROXIDE/SIMETHICONE 30ML UDC PO PRN (14:30)
[2022-08-03] MEDS ORDERED: IPRATROPIUM/ALBUTEROL 0.5-3(2.5)MG/3ML NEB NEB PRN (14:30)
[2022-08-03] MEDS ORDERED: ACETAMINOPHEN 325MG TABLET PO PRN ×2 (14:30)
[2022-08-03] MEDS ORDERED: NITROGLYCERIN 0.4MG TABLET SL SL PRN (14:30)
[2022-08-03] MEDS ORDERED: CLONIDINE 0.1MG TABLET PO PRN (14:30)
[2022-08-03] MEDS ORDERED: ONDANSETRON HCL 4MG/2ML INJ IV PRN (14:30)
[2022-08-03] MEDS ORDERED: DOCUSATE SODIUM 100MG CAPSULE PO PRN (14:30)
[2022-08-03 16:00] VITALS: BP 154/90
[2022-08-03] MEDS ORDERED: NALOXONE HCL 0.4MG/ML VIAL IV PRN (16:45)
[2022-08-03] MEDS: PREDNISONE 5MG TABLET PO SCH (17:12)
[2022-08-03] MEDS: APIXABAN 2.5 MG TABLET PO SCH (17:12)
[2022-08-03] MEDS ORDERED: ALBUTEROL 6.7GM HFA INHALER ORI PRN (17:15)
[2022-08-03] MEDS ORDERED: CEFTRIAXONE 1 G PREMIX 50 ML IV SCH (17:15)
[2022-08-03 18:44] LABS: T4 FREE 1.51 ng/dL (0.76-1.46)
[2022-08-03 20:00] VITALS: BP 127/76
[2022-08-03] MEDS: CEFTRIAXONE 1,000 MG in DEXTROSE 5% WATER 50 ML IV SCH (20:42)
[2022-08-03] MEDS: FAMOTIDINE 20MG TABLET PO SCH (20:43)
[2022-08-03] MEDS: METOPROLOL TARTRATE 25MG TABLET PO SCH (20:43)
[2022-08-03] MEDS: ASCORBIC ACID 500 MG TABLET PO SCH (20:43)
[2022-08-03] MEDS: SOTALOL HCL 80MG TABLET PO SCH (20:43)
[2022-08-03] MEDS: TACROLIMUS 5MG CAPSULE PO SCH (20:46)
[2022-08-04] VITALS: BP 125/84
[2022-08-04 04:00] VITALS: BP 133/74
[2022-08-04] MEDS: APIXABAN 2.5 MG TABLET PO SCH ×2 (05:06→17:51)
[2022-08-04 07:45] LABS: HEMATOCRIT. 39.7 % (42.0-52.0); MEAN CORPUSCULAR HEMOGLOBIN 28.5 pg (28.0-32.0); MEAN CORPUSCULAR VOLUME 86.9 fL (80.0-94.0); MEAN PLATELET VOLUME 7.9 fl (7.4-10.4); PLATELET 98 x1000/uL (130-400); RED BLOOD CELL COUNT 4.57 mill/uL (4.7-6.1); RED CELL DISTRIBUTION WIDTH 14.7 % (11.6-14.6)
[2022-08-04 08:00] VITALS: BP 139/91
[2022-08-04] MEDS: ASPIRIN 81MG EC TABLET PO SCH (09:07)
[2022-08-04] MEDS: ASCORBIC ACID 500 MG TABLET PO SCH ×2 (09:08→21:44)
[2022-08-04] MEDS: ZINC SULFATE 220 MG ( 50 ) CAPSULE PO SCH (09:08)
[2022-08-04] MEDS: AZATHIOPRINE 50MG TABLET PO SCH (09:08)
[2022-08-04] MEDS: METOPROLOL TARTRATE 25MG TABLET PO SCH ×2 (09:08→21:00)
[2022-08-04] MEDS: TACROLIMUS 5MG CAPSULE PO SCH ×2 (09:08→22:01)
[2022-08-04] MEDS: SOTALOL HCL 80MG TABLET PO SCH ×2 (09:08→21:00)
[2022-08-04] MEDS: PREDNISONE 5MG TABLET PO SCH (09:08)
[2022-08-04 12:00] VITALS: BP 134/70
[2022-08-04 16:00] VITALS: BP 112/78
[2022-08-04] MEDS: CEFTRIAXONE 1,000 MG in DEXTROSE 5% WATER 50 ML IV SCH (17:51)
[2022-08-04 20:00] VITALS: BP 127/70
[2022-08-04] MEDS: GUAIFENESIN 200MG/10ML SUGAR FREE UDC PO PRN (21:44)
[2022-08-04] MEDS: FAMOTIDINE 20MG TABLET PO SCH (21:44)
[2022-08-04] MEDS: TRAMADOL 50MG TABLET PO PRN (21:57)
[2022-08-04] MEDS ORDERED: DEXTROSE 50% WATER 50ML SYRINGE IV PRN (22:15)
[2022-08-04] MEDS: INSULIN LISPRO 100 UNITS/ML SUBCUT SCH (22:36)
[2022-08-04 22:44] LABS: PLATELET ESTIMATE DECREASED
[2022-08-05] VITALS: BP 116/58
[2022-08-05] MEDS: ZOLPIDEM TARTRATE 5MG TABLET PO PRN ×2 (00:41→21:36)
[2022-08-05 04:00] VITALS: BP 128/76
[2022-08-05] MEDS: APIXABAN 2.5 MG TABLET PO SCH ×2 (05:44→17:22)
[2022-08-05] MEDS: INSULIN LISPRO 100 UNITS/ML SUBCUT SCH ×4 (05:57→21:38)
[2022-08-05] MEDS: BLOOD SUGAR DIAGNOSTIC STRIP TEST SCH ×4 (05:57→21:18)
[2022-08-05] MEDS ORDERED: INSULIN LISPRO 100 UNITS/ML SUBCUT SCH (07:10)
[2022-08-05 07:52] LABS: HEMATOCRIT. 38.9 % (42.0-52.0); HEMOGLOBIN. 12.7 g/dL (14.0-18.0); MEAN CORPUSCULAR VOLUME 88.5 fL (80.0-94.0); RED CELL DISTRIBUTION WIDTH 14.9 % (11.6-14.6)
[2022-08-05 08:00] VITALS: BP 137/65
[2022-08-05] MEDS: ZINC SULFATE 220 MG ( 50 ) CAPSULE PO SCH (09:41)
[2022-08-05] MEDS: AZATHIOPRINE 50MG TABLET PO SCH (09:41)
[2022-08-05] MEDS: PREDNISONE 5MG TABLET PO SCH (09:41)
[2022-08-05] MEDS: ASCORBIC ACID 500 MG TABLET PO SCH ×2 (09:41→21:36)
[2022-08-05] MEDS: ASPIRIN 81MG EC TABLET PO SCH (09:41)
[2022-08-05] MEDS: TACROLIMUS 5MG CAPSULE PO SCH ×2 (09:45→21:36)
[2022-08-05 10:06] LABS: CREATINE KINASE 61 IU/L (39-308); CREATINE KINASE MB FRACTION 1.9 ng/mL (0.5-3.6)
[2022-08-05 12:00] VITALS: BP 116/61
[2022-08-05 12:02] LABS: PLATELET 102 x1000/uL (130-400)
[2022-08-05 12:09] LABS: PLATELET ESTIMATE DECREASED
[2022-08-05 16:00] VITALS: BP 118/60
[2022-08-05 16:03] LABS: CHLORIDE 104 mEq/L (98-107); PHOSPHORUS 4.4 mg/dL (2.5-4.9)
[2022-08-05 16:04] LABS: CHLORIDE 102 mEq/L (98-107)
[2022-08-05] MEDS: CEFTRIAXONE 1,000 MG in DEXTROSE 5% WATER 50 ML IV SCH (17:22)
[2022-08-05] MEDS: GUAIFENESIN 200MG/10ML SUGAR FREE UDC PO PRN (17:22)
[2022-08-05 20:00] VITALS: BP 145/83
[2022-08-05] MEDS: SOTALOL HCL 80MG TABLET PO SCH (21:00)
[2022-08-05] MEDS: FAMOTIDINE 20MG TABLET PO SCH (21:36)
[2022-08-05] MEDS: TRAMADOL 50MG TABLET PO PRN (21:37)
[2022-08-06] VITALS: BP 149/79
[2022-08-06 04:00] VITALS: BP 146/80
[2022-08-06] MEDS: APIXABAN 2.5 MG TABLET PO SCH ×2 (05:41→17:57)
[2022-08-06] MEDS: BLOOD SUGAR DIAGNOSTIC STRIP TEST SCH ×4 (05:46→21:06)
[2022-08-06] MEDS: INSULIN LISPRO 100 UNITS/ML SUBCUT SCH ×4 (06:37→21:00)
[2022-08-06 08:00] VITALS: BP 146/85
[2022-08-06] MEDS: SODIUM CHLORIDE 0.9% 1,000 ML IV SCH (08:15)
[2022-08-06] MEDS ORDERED: TACROLIMUS 5MG CAPSULE PO SCH (09:00)
[2022-08-06] MEDS: ASCORBIC ACID 500 MG TABLET PO SCH ×2 (09:47→21:29)
[2022-08-06] MEDS: AZATHIOPRINE 50MG TABLET PO SCH (09:47)
[2022-08-06] MEDS: ZINC SULFATE 220 MG ( 50 ) CAPSULE PO SCH (09:47)
[2022-08-06] MEDS: ASPIRIN 81MG EC TABLET PO SCH (09:47)
[2022-08-06] MEDS: SOTALOL HCL 80MG TABLET PO SCH (09:48)
[2022-08-06] MEDS: PREDNISONE 5MG TABLET PO SCH (09:49)
[2022-08-06 12:00] VITALS: BP 147/73
[2022-08-06] MEDS: MEROPENEM 1,000 MG in SODIUM CHLORIDE 0.9% 100 ML IV SCH (15:44)
[2022-08-06 16:00] VITALS: BP 131/27
[2022-08-06 20:00] VITALS: BP_SYST 151; BP_SYST 172; BP_DIAS 48; BP_DIAS 54
[2022-08-06] MEDS: TACROLIMUS 1MG CAPSULE PO SCH (21:29)
[2022-08-06] MEDS: FAMOTIDINE 20MG TABLET PO SCH (21:29)
[2022-08-06] MEDS: ZOLPIDEM TARTRATE 5MG TABLET PO PRN (21:36)
[2022-08-06] MEDS: GUAIFENESIN 200MG/10ML SUGAR FREE UDC PO PRN (21:36)
[2022-08-07] VITALS (8 sets, daily range): BP systolic 107–187; BP diastolic 51–106
[2022-08-07] MEDS: SODIUM CHLORIDE 0.9% 1,000 ML IV SCH (02:03)
[2022-08-07] MEDS: MEROPENEM 1,000 MG in SODIUM CHLORIDE 0.9% 100 ML IV SCH ×2 (02:03→14:09)
[2022-08-07] MEDS: APIXABAN 2.5 MG TABLET PO SCH ×2 (06:20→17:34)
[2022-08-07] MEDS: BLOOD SUGAR DIAGNOSTIC STRIP TEST SCH ×4 (06:24→21:20)
[2022-08-07] MEDS: INSULIN LISPRO 100 UNITS/ML SUBCUT SCH ×4 (06:24→21:19)
[2022-08-07] MEDS: TACROLIMUS 1MG CAPSULE PO SCH ×2 (09:00→21:17)
[2022-08-07] MEDS: PREDNISONE 5MG TABLET PO SCH (09:01)
[2022-08-07] MEDS: AZATHIOPRINE 50MG TABLET PO SCH (09:01)
[2022-08-07] MEDS: ZINC SULFATE 220 MG ( 50 ) CAPSULE PO SCH (09:01)
[2022-08-07] MEDS: ASPIRIN 81MG EC TABLET PO SCH (09:01)
[2022-08-07] MEDS: ASCORBIC ACID 500 MG TABLET PO SCH ×2 (09:01→21:17)
[2022-08-07] MEDS: AMLODIPINE 5MG TABLET PO SCH ×2 (14:10→21:18)
[2022-08-07] MEDS: HYDRALAZINE 20MG/ML VIAL IV PRN (17:35)
[2022-08-07] MEDS: GUAIFENESIN 200MG/10ML SUGAR FREE UDC PO PRN (21:17)
[2022-08-07] MEDS: FAMOTIDINE 20MG TABLET PO SCH (21:18)
[2022-08-07] MEDS: ZOLPIDEM TARTRATE 5MG TABLET PO PRN (21:35)
[2022-08-08] VITALS: BP 138/83
[2022-08-08] MEDS: MEROPENEM 1,000 MG in SODIUM CHLORIDE 0.9% 100 ML IV SCH (01:51)
[2022-08-08 04:00] VITALS: BP 156/102
[2022-08-08] MEDS: APIXABAN 2.5 MG TABLET PO SCH ×2 (05:55→17:16)
[2022-08-08] MEDS: INSULIN LISPRO 100 UNITS/ML SUBCUT SCH ×4 (05:59→21:00)
[2022-08-08] MEDS: BLOOD SUGAR DIAGNOSTIC STRIP TEST SCH ×4 (06:01→21:03)
[2022-08-08 06:32] LABS: HEMATOCRIT. 39.1 % (42.0-52.0); HEMOGLOBIN. 12.9 g/dL (14.0-18.0); MEAN CORPUSCULAR HEMOGLOBIN 28.3 pg (28.0-32.0); MEAN CORPUSCULAR VOLUME 85.6 fL (80.0-94.0); MEAN PLATELET VOLUME 8.2 fl (7.4-10.4); PLATELET 100 x1000/uL (130-400); RED BLOOD CELL COUNT 4.57 mill/uL (4.7-6.1); RED CELL DISTRIBUTION WIDTH 14.3 % (11.6-14.6)
[2022-08-08 08:00] VITALS: BP 146/74
[2022-08-08] MEDS: ZINC SULFATE 220 MG ( 50 ) CAPSULE PO SCH (08:53)
[2022-08-08] MEDS: ASCORBIC ACID 500 MG TABLET PO SCH ×2 (08:53→21:09)
[2022-08-08] MEDS: TACROLIMUS 1MG CAPSULE PO SCH ×2 (08:53→21:09)
[2022-08-08] MEDS: AMLODIPINE 5MG TABLET PO SCH ×2 (08:53→21:09)
[2022-08-08] MEDS: PREDNISONE 5MG TABLET PO SCH (08:53)
[2022-08-08] MEDS: ASPIRIN 81MG EC TABLET PO SCH (08:53)
[2022-08-08 12:00] VITALS: BP 142/72
[2022-08-08 14:47] LABS: PLATELET ESTIMATE DECREASED
[2022-08-08 16:00] VITALS: BP 146/68
[2022-08-08] MEDS: MEROPENEM 500MG in NORMAL SALINE 50ML IV SCH (17:15)
[2022-08-08 20:00] VITALS: BP_SYST 140; BP_DIAS 49; BP_DIAS 71
[2022-08-08] MEDS: FAMOTIDINE 20MG TABLET PO SCH (21:09)
[2022-08-08] MEDS: GUAIFENESIN 200MG/10ML SUGAR FREE UDC PO PRN (21:09)
[2022-08-09] VITALS: BP 139/73
[2022-08-09 04:00] VITALS: BP 137/66
[2022-08-09] MEDS: BLOOD SUGAR DIAGNOSTIC STRIP TEST SCH ×4 (06:43→21:17)
[2022-08-09] MEDS: MEROPENEM 500MG in NORMAL SALINE 50ML IV SCH ×2 (06:48→17:27)
[2022-08-09] MEDS: APIXABAN 2.5 MG TABLET PO SCH ×2 (06:49→17:27)
[2022-08-09] MEDS: INSULIN LISPRO 100 UNITS/ML SUBCUT SCH ×4 (06:50→21:17)
[2022-08-09 08:00] VITALS: BP 137/81
[2022-08-09] MEDS: ASCORBIC ACID 500 MG TABLET PO SCH ×2 (08:47→21:18)
[2022-08-09] MEDS: AMLODIPINE 5MG TABLET PO SCH ×2 (08:47→21:18)
[2022-08-09] MEDS: ZINC SULFATE 220 MG ( 50 ) CAPSULE PO SCH (08:47)
[2022-08-09] MEDS: ASPIRIN 81MG EC TABLET PO SCH (08:47)
[2022-08-09] MEDS: PREDNISONE 5MG TABLET PO SCH (08:47)
[2022-08-09] MEDS: TACROLIMUS 1MG CAPSULE PO SCH ×2 (08:47→21:18)
[2022-08-09 12:00] VITALS: BP 150/90
[2022-08-09 16:00] VITALS: BP 140/78
[2022-08-09 16:46] LABS: FOLIC ACID (FOLATE) SERUM > 20.00 ng/mL (>5.38); VITAMIN B12 SERUM 646 pg/mL (211-911)
[2022-08-09] MEDS: GUAIFENESIN 200MG/10ML SUGAR FREE UDC PO PRN (17:27)
[2022-08-09 20:00] VITALS: BP 171/85
[2022-08-09] MEDS: FAMOTIDINE 20MG TABLET PO SCH (21:18)
[2022-08-10] VITALS: BP 148/71
[2022-08-10 04:00] VITALS: BP 172/98
[2022-08-10] MEDS: HYDRALAZINE 20MG/ML VIAL IV PRN (04:29)
[2022-08-10] MEDS: BLOOD SUGAR DIAGNOSTIC STRIP TEST SCH ×4 (05:40→21:20)
[2022-08-10] MEDS: INSULIN LISPRO 100 UNITS/ML SUBCUT SCH ×4 (05:40→21:00)
[2022-08-10] MEDS: APIXABAN 2.5 MG TABLET PO SCH ×2 (06:11→17:36)
[2022-08-10] MEDS: MEROPENEM 500MG in NORMAL SALINE 50ML IV SCH ×2 (06:11→17:36)
[2022-08-10 06:22] LABS: HEMATOCRIT. 38.8 % (42.0-52.0); HEMOGLOBIN. 12.7 g/dL (14.0-18.0); MEAN CORPUSCULAR HEMOGLOBIN 28.5 pg (28.0-32.0); MEAN CORPUSCULAR VOLUME 86.8 fL (80.0-94.0); MEAN PLATELET VOLUME 8.3 fl (7.4-10.4); PLATELET 110 x1000/uL (130-400); RED BLOOD CELL COUNT 4.47 mill/uL (4.7-6.1); RED CELL DISTRIBUTION WIDTH 14.5 % (11.6-14.6)
[2022-08-10 07:27] LABS: CHLORIDE 114 mEq/L (98-107)
[2022-08-10] MEDS: AMLODIPINE 5MG TABLET PO SCH ×2 (09:18→20:32)
[2022-08-10] MEDS: ASPIRIN 81MG EC TABLET PO SCH (09:18)
[2022-08-10] MEDS: PREDNISONE 5MG TABLET PO SCH (09:18)
[2022-08-10] MEDS: TACROLIMUS 1MG CAPSULE PO SCH ×2 (09:18→20:31)
[2022-08-10 12:00] VITALS: BP_SYST 129; BP_SYST 137; BP_DIAS 74; BP_DIAS 81
[2022-08-10 16:00] VITALS: BP 120/67
[2022-08-10] MEDS: GUAIFENESIN 200MG/10ML SUGAR FREE UDC PO PRN (17:36)
[2022-08-10 18:00] VITALS: BP 137/74
[2022-08-10 18:40] LABS: PLATELET ESTIMATE DECREASED
[2022-08-10 20:00] VITALS: BP 140/87
[2022-08-10] MEDS: FAMOTIDINE 20MG TABLET PO SCH (20:32)
[2022-08-10] MEDS: ASCORBIC ACID 500 MG TABLET PO SCH (21:00)
[2022-08-11] VITALS: BP 157/90
[2022-08-11 04:00] VITALS: BP 132/82
[2022-08-11] MEDS: INSULIN LISPRO 100 UNITS/ML SUBCUT SCH ×4 (05:58→22:08)
[2022-08-11] MEDS: BLOOD SUGAR DIAGNOSTIC STRIP TEST SCH ×4 (05:58→21:58)
[2022-08-11] MEDS: MEROPENEM 500MG in NORMAL SALINE 50ML IV SCH ×2 (06:02→18:57)
[2022-08-11] MEDS: APIXABAN 2.5 MG TABLET PO SCH ×2 (06:03→18:57)
[2022-08-11 08:00] VITALS: BP 144/88
[2022-08-11] MEDS: ZINC SULFATE 220 MG ( 50 ) CAPSULE PO SCH ×2 (08:44→09:00)
[2022-08-11] MEDS: PREDNISONE 5MG TABLET PO SCH (08:45)
[2022-08-11] MEDS: ASPIRIN 81MG EC TABLET PO SCH (08:45)
[2022-08-11] MEDS: ASCORBIC ACID 500 MG TABLET PO SCH ×2 (08:45→22:07)
[2022-08-11] MEDS: AMLODIPINE 5MG TABLET PO SCH ×2 (08:45→21:00)
[2022-08-11] MEDS: TACROLIMUS 1MG CAPSULE PO SCH ×2 (11:07→22:07)
[2022-08-11 12:00] VITALS: BP 139/85
[2022-08-11 16:00] VITALS: BP 145/87
[2022-08-11 20:00] VITALS: BP 128/80
[2022-08-11] MEDS: FAMOTIDINE 20MG TABLET PO SCH (22:07)
[2022-08-12] VITALS: BP 131/84
[2022-08-12 04:00] VITALS: BP 129/75
[2022-08-12] MEDS: BLOOD SUGAR DIAGNOSTIC STRIP TEST SCH (05:49)
[2022-08-12] MEDS: INSULIN LISPRO 100 UNITS/ML SUBCUT SCH (05:49)
[2022-08-12] MEDS: APIXABAN 2.5 MG TABLET PO SCH (06:28)
[2022-08-12 08:00] VITALS: BP 140/81
[2022-08-12] MEDS: ASPIRIN 81MG EC TABLET PO SCH (09:00)
[2022-08-12] MEDS: ASCORBIC ACID 500 MG TABLET PO SCH (09:14)
[2022-08-12] MEDS: ZINC SULFATE 220 MG ( 50 ) CAPSULE PO SCH (09:15)
[2022-08-12] MEDS: PREDNISONE 5MG TABLET PO SCH (09:15)
[2022-08-12] MEDS: TACROLIMUS 1MG CAPSULE PO SCH (09:15)
[2022-08-12] MEDS: AMLODIPINE 5MG TABLET PO SCH (09:15)
[2022-08-12 09:16] VITALS: BP 140/81
[2022-08-12 10:54] VITALS: BP 140/81
== END 2022-08-12 12:20 | disposition home or self-care (01) | DRG 720 ==
LOC: ER 01:12 → 7EST 05:59 → EDBEDREQTM 06:18 → EDBEDREQ 06:18 → 7EST 13:13
PROVIDERS: ADMIT Internal Medicine; ATTEND Internal Medicine
PROC: 0JBR0ZZ Excision of Left Foot Subcutaneous Tissue and Fascia, Open Approach (ICD-10-PCS; principal; 2022-08-05)
DX: A41.89 Other specified sepsis (principal); I21.4 Non-ST elevation (NSTEMI) myocardial infarction; U07.1 COVID-19; D61.818 Other pancytopenia; E43 Unspecified severe protein-calorie malnutrition; I13.2 Hypertensive heart and chronic kidney disease with heart failure and with stage 5 chronic kidney disease, or end stage renal disease; N17.9 Acute kidney failure, unspecified; N18.6 End stage renal disease; I48.92 Unspecified atrial flutter; E11.22 Type 2 diabetes mellitus with diabetic chronic kidney disease; E83.51 Hypocalcemia; E11.40 Type 2 diabetes mellitus with diabetic neuropathy, unspecified; E11.621 Type 2 diabetes mellitus with foot ulcer; I25.10 Atherosclerotic heart disease of native coronary artery without angina pectoris; I48.0 Paroxysmal atrial fibrillation; I50.9 Heart failure, unspecified; K27.9 Peptic ulcer, site unspecified, unspecified as acute or chronic, without hemorrhage or perforation; L97.519 Non-pressure chronic ulcer of other part of right foot with unspecified severity; D63.1 Anemia in chronic kidney disease; I49.1 Atrial premature depolarization; A08.39 Other viral enteritis; L97.529 Non-pressure chronic ulcer of other part of left foot with unspecified severity; M16.10 Unilateral primary osteoarthritis, unspecified hip; N25.81 Secondary hyperparathyroidism of renal origin; N40.0 Benign prostatic hyperplasia without lower urinary tract symptoms; N39.0 Urinary tract infection, site not specified; Z78.9 Other specified health status; Z95.5 Presence of coronary angioplasty implant and graft; Z79.4 Long term (current) use of insulin; Z79.01 Long term (current) use of anticoagulants; Z87.440 Personal history of urinary (tract) infections; Z79.899 Other long term (current) drug therapy; Z96.651 Presence of right artificial knee joint; I25.2 Old myocardial infarction; Z88.8 Allergy status to other drugs, medicaments and biological substances; Z68.1 Body mass index [BMI] 19.9 or less, adult; Z94.0 Kidney transplant status
CPT/HCPCS: 36415; 71045; 74176; 80048; 80053; 80197; 80305; 80320; 81003; 82550; 82553; 82607; 82746; 82962; 83036; 83540; 83550; 83605; 83735; 83880; 84100; 84145; 84439; 84443; 84484; 85025; 87077; 87186; 87426; 93005; 93923; 93970; 99291; C1893; C9803; J0360; J0696; J1815; J2185; J2405; J7030; J7050; J7060; J7500; J7507; J7512; G0480